=== PATIENT | female | born 1995 | race Two or more races ===

== ENCOUNTER 2023-06-23 08:55 | Inpatient (IN) | payer OTHER ==
[2023-06-23] MEDS: ELECTROLYTE-148 SOLN 1,000 ML IV SCH (11:00)
[2023-06-23 11:04] LABS: BASO % 0.4 % (0-2.0); HEMATOCRIT 39.5 % (32.4-45.2); LYMPH % 10.4 % (8-40); MCH 28.7 pg (25.7-33.7); MCHC 32.9 g/dl (32.0-36.0); MEAN CELL VOLUME 87.2 fl (80-96); MEAN PLT VOLUME 9.2 fl (7.5-11.1); MONO % 6.5 % (3.8-10.2); NEUT % 82.7 % (42.8-82.8); PLATELET COUNT 208 10^3/uL (134-434); RBC 4.53 M/mm3 (3.60-5.2); RDW 14.3 % (11.6-15.6); WHITE BLOOD COUNT 13.8 K/mm3 (4.0-10.0)
[2023-06-23 11:17] LABS: INR 0.96 (0.83-1.09); PROTHROMBIN TIME (PATIENT) 11.1 SEC (9.7-13.0)
[2023-06-23 11:20] LABS: ACTIVATED PTT 30.1 SECONDS (25.2-36.5)
[2023-06-23 11:21] LABS: POTASSIUM 3.9 mmol/L (3.5-5.1)
[2023-06-23 11:23] LABS: BLOOD UREA NITROGEN 9.4 mg/dL (7-18); CALCIUM 9.1 mg/dL (8.5-10.1)
[2023-06-23 11:27] LABS: CREATININE 0.6 mg/dL (0.55-1.3)
[2023-06-23 11:46] VITALS: BMI 28.3
[2023-06-23 11:48] LABS: SYPHILIS W/ RPR CONF NON-REACTIVE (NONREACTIVE)
[2023-06-23 11:49] LABS: HEPATITIS B SURFACE AG MATERN NON-REACTIVE (NONREACTIVE)
[2023-06-23] MEDS ORDERED: FENTANYL/BUPIVACAINE/NS/PF - PCEA - 50 ML DISP.SYRIN EP ONE (12:00)
[2023-06-23] MEDS: FENTANYL/BUPIVACAINE/NS/PF - PCEA - 50 ML DISP.SYRIN EP SCH (12:19)
[2023-06-23] MEDS ORDERED: NALOXONE HCL 0.4 MG/ML VIAL IVPUSH PRN (12:51)
[2023-06-23] MEDS ORDERED: OXYTOCIN 20 UNITS in 0.9% NS 20 UNIT/1,000 ML INFUS.BAG IV ONE ×2 (13:27→16:08)
[2023-06-23] MEDS: OXYTOCIN 20 UNITS in 0.9% NS 20 UNIT/1,000 ML INFUS.BAG IV SCH (15:04)
[2023-06-23] MEDS ORDERED: MISOPROSTOL 200 MCG TABLET ONE (15:07)
[2023-06-23] MEDS: MISOPROSTOL 100 MCG TABLET PV ONE (15:40)
[2023-06-23 15:46] LABS: CORD BASE EXCESS -1.9 mmol/L (0-2); CORD PCO2 44.8 mmHg (30-78); CORD pH 7.347 (7.14-7.44)
[2023-06-23 15:48] LABS: CORD BASE EXCESS -2.8 mmol/L (0-2); CORD HCO3 22.8 mmHg (20-29); CORD PCO2 42.7 mmHg (30-78); CORD pH 7.346 (7.14-7.44)
[2023-06-23] MEDS ORDERED: ACETAMINOPHEN 325 MG TABLET (FP) PO PRN (15:50)
[2023-06-23] MEDS ORDERED: METHYLERGONOVINE MALEATE 0.2 MG/1 ML AMP IM PRN (15:50)
[2023-06-23] MEDS ORDERED: BISACODYL 10 MG SUPP.RECT RC PRN (15:50)
[2023-06-23] MEDS ORDERED: BENZOCAINE 28 GM HEMORRHOIDAL OINTMENT TP PRN (15:50)
[2023-06-23] MEDS ORDERED: ACETAMINOPHEN INJECTION 100 ML IVPB ONE (16:37)
[2023-06-23] MEDS: ACETAMINOPHEN 1000 MG/100 ML BAG IVPB ONE (16:41)
[2023-06-23] MEDS: IBUPROFEN 600 MG TABLET (FP) PO PRN (19:41)
[2023-06-23] MEDS: BENZOCAINE 20% 57 GM BOTTLE TP PRN (19:41)
[2023-06-23] MEDS: WITCH HAZEL 50% (TUCKS) 40 PAD/JAR PAD TP PRN (19:42)
[2023-06-24 07:31] LABS: BASO % 0.2 % (0-2.0); EOS % 0.1 % (0-4.5); HEMATOCRIT 23.3 % (32.4-45.2); HEMOGLOBIN 7.8 GM/dL (10.7-15.3); LYMPH % 17.4 % (8-40); MCH 29.4 pg (25.7-33.7); MCHC 33.5 g/dl (32.0-36.0); MEAN CELL VOLUME 87.7 fl (80-96); MONO % 9.4 % (3.8-10.2); NEUT % 72.9 % (42.8-82.8); PLATELET COUNT 167 10^3/uL (134-434); RBC 2.66 M/mm3 (3.60-5.2); RDW 14.6 % (11.6-15.6); WHITE BLOOD COUNT 13.9 K/mm3 (4.0-10.0)
[2023-06-24] MEDS: oxyCODONE HCL 5 MG TABLET PO PRN (12:41)
[2023-06-24] MEDS: FERROUS SO4 325 MG TABLET (FP) PO SCH (17:32)
[2023-06-24] MEDS: DOCUSATE SODIUM 100 MG CAPSULE (FP) PO PRN (21:18)
[2023-06-25 08:48] VITALS: BP 93/57; PULSE 87; RESP 16; TEMP 98
[2023-06-25 08:53] LABS: BASO % 0.2 % (0-2.0); EOS % 1.3 % (0-4.5); HEMOGLOBIN 7.1 GM/dL (10.7-15.3); LYMPH % 18.9 % (8-40); MCH 28.7 pg (25.7-33.7); MCHC 32.2 g/dl (32.0-36.0); MEAN CELL VOLUME 89.1 fl (80-96); MEAN PLT VOLUME 8.8 fl (7.5-11.1); MONO % 8.7 % (3.8-10.2); NEUT % 70.9 % (42.8-82.8); PLATELET COUNT 177 10^3/uL (134-434); RBC 2.48 M/mm3 (3.60-5.2); RDW 14.6 % (11.6-15.6); WHITE BLOOD COUNT 13.1 K/mm3 (4.0-10.0)
== END 2023-06-25 16:20 | disposition home or self-care (01) | DRG 560 ==
LOC: JDEL 08:55 → JLDR 09:55 → J3W 18:15
PROVIDERS: ADMIT Student in an Organized Health Care Education/Training Program; ATTEND Student in an Organized Health Care Education/Training Program
PROC: 10E0XZZ Delivery of Products of Conception, External Approach (ICD-10-PCS; principal; 2023-06-23)
PROC: 0KQM0ZZ Repair Perineum Muscle, Open Approach (ICD-10-PCS; 2023-06-23)
DX: O48.0 Post-term pregnancy (principal); O70.1 Second degree perineal laceration during delivery; O90.81 Anemia of the puerperium; Z3A.40 40 weeks gestation of pregnancy; Z37.0 Single live birth
CPT/HCPCS: 36415; 36600; 59025; 80048; 82803; 85025; 85610; 85730; 86780; 86850; 86900; 86901; 87340; J0131